=== PATIENT | male | born 1950 ===

== ENCOUNTER 2023-08-28 11:03 | Emergency (ER) | payer MEDICARE, OTHER ==
[~2023-08-28] VITALS: Ht 170.2 cm; Wt 78.2 kg
[2023-08-28 11:11] VITALS: TEMP 98.2
[2023-08-28] MEDS ORDERED: ALFU10TA30 PO (11:37)
[2023-08-28] MEDS ORDERED: METO-558 PO (11:37)
[2023-08-28] MEDS ORDERED: GABA-1201 PO (11:37)
[2023-08-28] MEDS ORDERED: DOCU-412 PO (11:37)
[2023-08-28] MEDS ORDERED: MONT-35 PO (11:37)
[2023-08-28] MEDS ORDERED: ASPI-1450 PO (11:37)
[2023-08-28] MEDS ORDERED: OLAN10TA74 PO (11:37)
[2023-08-28] MEDS ORDERED: ALBU18HF12 IH (11:37)
[2023-08-28] MEDS ORDERED: SPIR-37 PO (11:37)
[2023-08-28] MEDS ORDERED: LOSA-381 PO (11:37)
[2023-08-28] MEDS ORDERED: ACET-2247 PO (11:37)
[2023-08-28] MEDS ORDERED: DUPI300S SQ (11:37)
[2023-08-28] MEDS ORDERED: LITH450CRT PO (11:37)
[2023-08-28] MEDS ORDERED: OMEP20 PO (11:37)
[2023-08-28] MEDS ORDERED: EMPA25TA3 PO (11:37)
[2023-08-28] MEDS ORDERED: FINA-27 PO (11:37)
[2023-08-28] MEDS ORDERED: ATOR40TA28 PO (11:37)
[2023-08-28] MEDS ORDERED: METF-1211 PO (11:37)
[2023-08-28] MEDS ORDERED: OLAN5TAB52 PO (11:37)
[2023-08-28] MEDS ORDERED: IBUPROFEN 600 MG TABLET PO ONE (12:15)
[2023-08-28] MEDS ORDERED: HYDROCODONE/ACETAMINOPHEN 5-325 MG TABLET PO ONE (12:15)
[2023-08-28 12:30] LABS: BASOPHILS % (AUTO) 0.6 % (0.0-2.0); EOSINOPHILS % (AUTO) 2.8 % (1.0-6.0); HEMATOCRIT 36.9 % (41-53); HEMOGLOBIN 12.4 g/dL (13.5-17.5); LYMPHOCYTES # (AUTO) 1.7 K/uL (1.0-4.8); LYMPHOCYTES % (AUTO) 19.6 % (22.0-44.0); MEAN CORPUSCULAR HEMOGLOBIN 31.3 pg (26.0-34.0); MEAN CORPUSCULAR HGB CONC 33.6 G/dL (31.0-37.0); MEAN CORPUSCULAR VOLUME 93 fL (80-100); MONOCYTES # (AUTO) 1.3 K/uL (0.1-1.0); MONOCYTES % (AUTO) 15.5 % (2.0-9.0); NEUTROPHILS # (AUTO) 5.3 K/uL (1.8-7.7); NEUTROPHILS % (AUTO) 61.5 % (40.0-70.0); PLATELET COUNT (AUTO) 363 K/uL (150-450); RED BLOOD CELL COUNT(AUTO) 3.96 MIL/uL (4.50-5.90); RED CELL DISTRIBUTION WIDTH 14.8 % (11.5-14.5); WHITE BLOOD COUNT (AUTO) 8.6 K/uL (4.5-11.0)
[2023-08-28 12:38] LABS: ANION GAP 7 mmol/L (8-16); CALCIUM, TOTAL 9.5 mg/dL (8.8-10.5); CARBON DIOXIDE 24 mmol/L (22-29); CHLORIDE 105 mmol/L (98-107); CREATININE 0.68 mg/dL (0.60-1.30); GLOMERULAR FILTR. RATE CALC > 60 mL/min (>60); GLUCOSE,RANDOM 103 mg/dL (70-110); POTASSIUM 3.9 mmol/L (3.5-5.1); SODIUM SERUM 136 mmol/L (136-145); UREA NITROGEN, BLOOD 13 mg/dL (7-18)
[2023-08-28 12:43] LABS: CREATINE KINASE, TOTAL ONLY 46 U/L (39-308)
[2023-08-28 13:27] VITALS: BP 118/63; PULSE 48; RESP 18
[2023-08-28] MEDS ORDERED: IBUP-1492 PO (13:32)
== END 2023-08-28 13:59 | disposition home or self-care (01) ==
LOC: EMS 11:04
DX: M25.512 Pain in left shoulder (principal); M25.511 Pain in right shoulder; M79.18 Myalgia, other site; J45.909 Unspecified asthma, uncomplicated; F31.9 Bipolar disorder, unspecified; E78.00 Pure hypercholesterolemia, unspecified; F20.9 Schizophrenia, unspecified; I11.0 Hypertensive heart disease with heart failure; I50.9 Heart failure, unspecified; F12.90 Cannabis use, unspecified, uncomplicated; N40.0 Benign prostatic hyperplasia without lower urinary tract symptoms
CPT/HCPCS: 80048; 82550; 82962; 85025; 99283